=== PATIENT | male | born 1950 | race Caucasian/White ===

== ENCOUNTER → 2016-04-26 | Outpatient (CLI) | payer MEDICARE, BC ==
[2015-03-02 03:00] VITALS: BP 150/68
--- NOTE | 2016-04-26 13:06 | KCIC ---
PROCEDURE Abdomen ultrasound HISTORY Severe right upper quadrant pain, nausea and vomiting COMPARISON None FINDINGS Multiple sonographic images of the abdomen are submitted. Pancreas is not well visualized due to bowel gas. Inferior vena cava is also not well seen due to bowel gas. There is coarsening of the echotexture of liver, no focal hepatic mass demonstrated. There is demonstrable color flow in the main portal vein. Right lobe of the liver measured 16.3 centimeters longitudinal. There is a large echogenic shadowing focus in the gallbladder lumen on the order of 2.2 centimeters in size, a few other smaller gallstones present. Gallbladder wall thickness is slightly prominent 0.4 cm. There is no pericholecystic fluid. Technologist reports a positive sonographic Potter's sign. Common bile duct is dilated up to 0.8 centimeters. Right kidney measured 10.3 x 3.9 x 5 centimeters, no hydronephrosis. IMPRESSION 1. There is cholelithiasis, largest 2.2 cm. There is nonspecific mild gallbladder wall thickening and technologist reports a positive sonographic Potter's sign which could be seen with cholecystitis although although no pericholecystic fluid. Common bile duct is dilated up to 0.8 centimeters. 2. There is hepatic steatosis. Electronically signed by: Corey Mack MD (Apr 26, 2016 13:04:05)
== END | disposition home or self-care (01) ==
LOC: KCIC US 12:08
PROVIDERS: ATTEND Nurse Practitioner Family
DX: K80.20 Calculus of gallbladder without cholecystitis without obstruction (principal); K76.0 Fatty (change of) liver, not elsewhere classified
CPT/HCPCS: 76705

== ENCOUNTER 2016-05-17 05:44 | Observation (INO) | payer BC, MEDICARE ==
[~2016-05-17] VITALS: Ht 177.8 cm; Wt 81.6 kg
[2016-05-17] VITALS (11 sets, daily range): BP systolic 114–147; BP diastolic 44–67
[2016-05-17] MEDS ORDERED: CEFAZOLIN 2GM PREMIX 50 ML IV PRN (06:00)
[2016-05-17] MEDS ORDERED: CITA40TA5 PO (06:05)
[2016-05-17] MEDS ORDERED: OMEP40CA5 PO (06:05)
[2016-05-17] MEDS ORDERED: CHOL100013 PO (06:06)
[2016-05-17] MEDS ORDERED: LIDOCAINE 1% 1 ML SYRINGE. ID PRN (07:00)
[2016-05-17] MEDS ORDERED: MORPHINE SULFATE 2 MG/ML DISP.SYRIN. IV PRN (07:00)
[2016-05-17] MEDS ORDERED: IV RINGERS,LACTATED 1000ML 1,000 ML IV SCH (07:00)
[2016-05-17] MEDS ORDERED: ONDANSETRON PF 4 MG/2 ML VIAL. IV PRN ×2 (07:00→09:00)
[2016-05-17] MEDS ORDERED: PROCHLORPERAZINE 10 MG/2 ML VIAL. IV PRN (07:00)
[2016-05-17] MEDS ORDERED: FENTANYL PF 100 MCG/2 ML VIAL. IV PRN (07:00)
[2016-05-17] MEDS ORDERED: BUPIVACAINE-EPI 0.5%-1:200000 50 ML VIAL. ONE (07:09)
[2016-05-17] MEDS ORDERED: SURGICEL HEMOSTAT 4X8 EACH. ONE (07:09)
[2016-05-17] MEDS ORDERED: IOHEXOL 300 MG/ML 50 ML VIAL. ONE (07:09)
[2016-05-17] MEDS ORDERED: PROPOFOL 20 ML IV ONE (07:16)
[2016-05-17] MEDS ORDERED: LIDOCAINE 2% 100 MG/5 ML SYRINGE. ONE (07:16)
[2016-05-17] MEDS ORDERED: FENTANYL PF 100 MCG/2 ML VIAL. ONE ×2 (07:16→08:02)
[2016-05-17] MEDS ORDERED: ONDANSETRON PF 4 MG/2 ML VIAL. ONE (07:16)
[2016-05-17] MEDS ORDERED: DEXAMETHASONE SOD PHOS 20 MG/5 ML VIAL. ONE ×2 (07:16→07:43)
[2016-05-17] MEDS ORDERED: SUCCINYLCHOLINE 200 MG/10 ML VIAL. ONE (07:16)
[2016-05-17] MEDS ORDERED: ROCURONIUM 50 MG/5 ML VIAL. ONE (07:17)
[2016-05-17] MEDS ORDERED: DIPHENHYDRAMINE 50 MG/ML VIAL. ONE (07:43)
[2016-05-17] MEDS ORDERED: FAMOTIDINE 20 MG/2 ML VIAL ONE (07:43)
[2016-05-17] MEDS ORDERED: ESMOLOL 100 MG/10 ML VIAL. IV ONE (08:02)
[2016-05-17] MEDS ORDERED: SEVOFLURANE 61 TO 120 MINUTES. IH ONE (08:13)
[2016-05-17] MEDS ORDERED: GLYCOPYRROLATE 1 MG/5 ML VIAL. ONE (08:26)
[2016-05-17] MEDS ORDERED: NEOSTIGMINE METHYLSULFATE 5 MG/5 ML SYRINGE. ONE (08:26)
--- NOTE | 2016-05-17 08:27 | RAD ---
Intraoperative cholangiogram, 05/17/2016: History: Cholecystectomy 2 spot films from surgery are presented for review. Contrast has been injected into the cystic duct remnant. 12 seconds of fluoroscopy time was utilized. The bile ducts are not dilated. There is good flow of contrast into the duodenum at the ampulla. No filling defect is seen in the common duct to suggest a retained calculus. The incompletely opacified intrahepatic ducts are unremarkable. IMPRESSION: No significant abnormality is detected.
--- NOTE | 2016-05-17 08:57 | PDOC4 ---
Operative Note Operative Note Operative Note: Preoperative Diagnosis: Calculus cholecystitis Postoperative Diagnosis: Same Procedure: Laparoscopic cholecystectomy with intraoperative cholangiogram Surgeons: Tomás Anesthesia: GenInes Estimated Blood Loss: 30 mL Specimen: Gallbladder to pathology Drains: None Complications: None Indications: The patient is a 66-year-old male who is been experiencing recurrent upper abdominal pain consistent with biliary colic. His evaluation included a sonogram which showed gallstones and concern for cholecystitis. Surgical treatment was offered by means of a laparoscopic cholecystectomy. The risks of surgery were discussed which include bleeding, infection, bile duct injury, bile leak, pain, the potential for additional surgeries or procedures. The patient understands and would like to proceed. Description: The patient was taken to the operating room and laid supine on the operating table. General anesthesia was performed. The abdomen was prepped with ChloraPrep and draped in a standard surgical fashion. A small infraumbilical incision was made with a scalpel. The Veress needle was then inserted and a pneumoperitoneum was then created. A 5 mm trocar was then inserted and the laparoscope was introduced. In the upper midabdomen a 12 mm trocar was inserted and in the right upper quadrant two 5 mm trochars were inserted. The gallbladder initially could not be visualized and there was significant adherence of the omentum to the gallbladder and liver. The omentum had to be dissected away and we were gradually able to visualize the anterior wall of the gallbladder. The overall appearance seemed consistent with marked chronic cholecystitis. I continued to mobilize the wall of the gallbladder from the omentum and freed up the remaining chronic-appearing adhesions. The gallbladder was then retracted cephalad. The cystic duct was dissected free from surrounding tissues. One clip was placed on the duct near the gallbladder junction. An opening was made in the duct and a cholangiocatheter placed within and secured with a clip. Using contrast dye and fluoroscopy an intraoperative cholangiogram was performed that appeared unremarkable. The clip and catheter were then withdrawn. Three clips were placed on the cystic duct and it was divided. The cystic artery was then identified, dissected free , doubly clipped and divided as well. The gallbladder was then mobilized away from the liver with cautery. The gallbladder was then placed in an endoscopic bag and extracted at the superior trocar site. The fascia there was closed with an 0 Vicryl suture. All blood and irrigation fluid was suctioned and hemostasis was good. The remaining ports were removed and the pneumoperitoneum was relieved. The skin incisions were injected with half percent Marcaine with epinephrine, and all were closed using 4-0 Monocryl suture. Steri-Strips and dressings were then applied. The patient tolerated the procedure well and was sent to the recovery room in stable condition. At the end of the case all counts were correct. LILLIAN HOLGUIN MD May 17, 2016 08:56
[2016-05-17] MEDS ORDERED: OXYCODONE/APAP 5/325 TABLET. PO PRN (09:00)
[2016-05-17] MEDS ORDERED: HYDROMORPHONE 2 MG/ML VIAL. IV PRN ×2 (09:00→10:00)
[2016-05-17] MEDS ORDERED: DEXTROSE 50% 25 GM / 50ML DISP.SYRIN. IV PRN (09:00)
[2016-05-17] MEDS ORDERED: 0.9 % SODIUM CHLORIDE 10 ML DISP.SYRIN. IV PRN (09:00)
[2016-05-17] MEDS: FENTANYL PF 100 MCG/2 ML VIAL. IV PRN ×2 (09:10→09:19)
[2016-05-17] MEDS: HYDROMORPHONE 2 MG/ML VIAL. IV PRN ×2 (09:25→09:35)
[2016-05-17] MEDS ORDERED: POTASSIUM CL 20MEQ D5-0.45NACL 1,000 ML IV SCH (10:00)
[2016-05-17] MEDS: PANTOPRAZOLE 40 MG TABLET.DR. PO SCH (10:00)
[2016-05-17] MEDS: KETOROLAC 15 MG/ML VIAL. IV PRN ×2 (10:39→18:17)
[2016-05-17] MEDS: CITALOPRAM 20 MG TABLET. PO SCH (10:39)
[2016-05-17] MEDS ORDERED: IV DEXTROSE 5 %-0.45 % NACL 1,000 ML IV SCH (11:30)
[2016-05-17] MEDS: OXYCODONE/APAP 5/325 TABLET. PO PRN (18:18)
[2016-05-18 03:01] VITALS: BP 107/53
[2016-05-18] MEDS: OXYCODONE/APAP 5/325 TABLET. PO PRN ×2 (03:47→08:21)
[2016-05-18 07:00] VITALS: BP 104/58
[2016-05-18] MEDS: PANTOPRAZOLE 40 MG TABLET.DR. PO SCH (08:20)
[2016-05-18] MEDS: KETOROLAC 15 MG/ML VIAL. IV PRN (08:20)
[2016-05-18] MEDS: CITALOPRAM 20 MG TABLET. PO SCH (08:28)
--- NOTE | 2016-05-18 08:54 | PDOC ---
PROGRESS NOTES Subjective Subjective Doing well, no complaints Objective Objective Vital Signs Date Time Temp Pulse Resp B/P Pulse Ox O2 Delivery O2 Flow Rate FiO2 05/18/16 08:21 Nasal Cannula 05/18/16 07:00 97.7 64 18 104/58 90 97.7 05/17/16 14:55 2.0 Intake and Output 05/18/16 06:59 Intake Total 1913 ml Output Total 1100 ml Balance 813 ml Intake Oral 0 ml IV Total 1913 ml Output Urine Total 1100 ml # Voids 4 Physical Exam Abdomen: Soft, No tenderness General: Alert, Oriented X3 Assessment Assessment Problems Medical Problems: (1) Chronic calculous cholecystitis Status: Acute Plan Plan of Care Discharge Comment Review of Relevant I have reviewed the following items vero (where applicable) has been applied. Medications Current Medications Ondansetron HCl (Zofran) 0.4 mg PRN Q6HRS PRN IV NAUSEA/VOMITING; Start at 07:00; Stop 05/17/16 at 15:03; Status DC Fentanyl Citrate (Fentanyl 2ml Vial) 25 mcg PRN Q5MIN PRN IV MILD PAIN; Start 05/17/16 at 07:00; Stop 05/17/16 at 11:16; Status DC Fentanyl Citrate (Fentanyl 2ml Vial) 50 mcg PRN Q5MIN PRN IV MODERATE PAIN Last administered on 05/17/16 09:19; Start 05/17/16 at 07:00; Stop 05/17/16 at 11: 16; Status DC Morphine Sulfate 1 mg 1 mg PRN Q10MIN PRN IV SEVERE PAIN; Start 05/17/16 at 07: 00; Stop 05/17/16 at 15:03; Status DC Lactated Ringer's (Iv Lactated Ringers) 1,000 ml @ 0 mls/hr Q0M IV Last administered on 05/17/16 06:43; Start 05/17/16 at 07:00; Stop 05/17/16 at 11:16; Status DC Lidocaine HCl 2 ml PRN 1X PRN ID PRIOR TO IV START; Start 05/17/16 at 07:00; Stop 05/17/16 at 11:16; Status DC Hydromorphone HCl (Dilaudid) 0.5 mg PRN Q10MIN PRN IV SEV PAIN, Second choice Last administered on 05/17/16 09:35; Start 05/17/16 at 07:00; Stop 05/17/16 at 11: 16; Status DC Prochlorperazine Edisylate 5 mg 5 mg PACU PRN PRN IV NAUSEA, MRX1 Last administered on 05/17/16 09:10; Start 05/17/16 at 07:00; Stop 05/17/16 at 11:18; Status DC Cefazolin Sodium/ Dextrose (Ancef 2gm Premix) 50 ml @ 100 mls/hr 1X PREOP PRN IV PRIOR TO PROCEDURE Last administered on 05/17/16 07:38; Start 05/17/16 at 06: 00; Stop 05/17/16 at 18:00; Status DC Cellulose 1 each STK-MED ONCE .ROUTE ; Start 05/17/16 at 07:09; Stop 05/17/16 at 07:10; Status DC Iohexol (Omnipaque 300 Mg/ml) 50 ml STK-MED ONCE .ROUTE Last administered on 07:53; Start 05/17/16 at 07:09; Stop 05/17/16 at 07:10; Status DC Bupivacaine HCl/ Epinephrine Bitart (Marcaine-Epi 0.5%-[id number]) 50 ml STK-MED ONCE .ROUTE Last administered on 05/17/16 07:53; Start 05/17/16 at 07:09; Stop 05/17/16 at 11:16; Status DC Dexamethasone Sodium Phosphate (Decadron) 20 mg STK-MED ONCE .ROUTE ; Start 05/17 at 07:16; Stop 05/17/16 at 11:16; Status DC Ondansetron HCl 4 mg 4 mg STK-MED ONCE .ROUTE ; Start 05/17/16 at 07:16; Stop 05/17/16 at 07:17; Status DC Propofol (Diprivan) 20 ml @ As Directed STK-MED ONCE IV ; Start 05/17/16 at 07:16 ; Stop 05/17/16 at 11:16; Status DC Lidocaine HCl (Lidocaine HCl 2% Abboject) 100 mg STK-MED ONCE .ROUTE ; Start 05/17/16 at 07:16; Stop 05/17/16 at 07:17; Status DC Fentanyl Citrate (Fentanyl 2ml Vial) 100 mcg STK-MED ONCE .ROUTE ; Start at 07:16; Stop 05/17/16 at 11:16; Status DC Succinylcholine Chloride (Anectine) 200 mg STK-MED ONCE .ROUTE ; Start 05/17/16 at 07:16; Stop 05/17/16 at 07:17; Status DC Rocuronium [place] (Zemuron) 50 mg STK-MED ONCE .ROUTE ; Start 05/17/16 at 07:17 ; Stop 05/17/16 at 07:18; Status DC Dexamethasone Sodium Phosphate (Decadron) 20 mg STK-MED ONCE .ROUTE ; Start 05/17 at 07:43; Stop 05/17/16 at 11:16; Status DC Famotidine (Pepcid) 20 mg STK-MED ONCE .ROUTE ; Start 05/17/16 at 07:43; Stop 05/17/16 at 11:16; Status DC Diphenhydramine HCl (Benadryl) 50 mg STK-MED ONCE .ROUTE ; Start 05/17/16 at 07: 43; Stop 05/17/16 at 11:16; Status DC Fentanyl Citrate (Fentanyl 2ml Vial) 100 mcg STK-MED ONCE .ROUTE ; Start at 08:02; Stop 05/17/16 at 11:16; Status DC Esmolol HCl (Brevibloc) 100 mg STK-MED ONCE IV ; Start 05/17/16 at 08:02; Stop at 11:16; Status DC Sevoflurane (Ultane) 60 ml STK-MED ONCE IH ; Start 05/17/16 at 08:13; Stop at 08:14; Status DC Glycopyrrolate (Robinul) 1 mg STK-MED ONCE .ROUTE ; Start 05/17/16 at 08:26; Stop 05/17/16 at 11:16; Status DC Neostigmine Methylsulfate 5 mg STK-MED ONCE .ROUTE ; Start 05/17/16 at 08:26; Stop 05/17/16 at 08:27; Status DC Sodium Chloride 3 ml 3 ml QSHIFT PRN IV AFTER MEDS AND BLOOD DRAWS; Start at 09:00 Potassium Chloride/Dextrose/ Sod Cl (KCl 20 Meq In D5W-1/2 NS) 1,000 ml @ 80 mls/hr [id number] IV ; Start 05/17/16 at 10:00; Stop 05/17/16 at 11:09; Status DC Dextrose (Dextrose 50%-Water Syringe) 12.5 gm PRN Q15MIN PRN IV SEE COMMENTS; Start 05/17/16 at 09:00 Oxycodone/ Acetaminophen (Percocet 5/325) 1 tab PRN Q4HRS PRN PO MILD PAIN, 1ST CHOICE Last administered on 05/17/16 14:55; Start 05/17/16 at 09:00 Oxycodone/ Acetaminophen (Percocet 5/325) 2 tab PRN Q4HRS PRN PO MODERATE PAIN , SEVERE PAIN Last administered on 05/18/16 08:21; Start 05/17/16 at 09:00 Ketorolac Tromethamine (Toradol) 15 mg PRN Q6HRS PRN IV PAIN Last administered on 05/18/16 08:20; Start 05/17/16 at 09:00; Stop 05/22/16 at 08:59 Hydromorphone HCl (Dilaudid) 0.2 mg PRN Q2HRS PRN IV PAIN; Start 05/17/16 at 09: 00 Ondansetron HCl (Zofran) 4 mg PRN Q6HRS PRN IV NAUESA, 1ST CHOICE; Start at 09:00 Citalopram Hydrobromide (Celexa) 40 mg DAILY PO Last administered on 05/18/16 08:28; Start 05/17/16 at 10:00 Pantoprazole Sodium (Protonix) 40 mg DAILYAC PO Last administered on 05/18/16 08:20; Start 05/17/16 at 10:00 Hydromorphone HCl 0.5 mg 0.5 mg PRN Q2HRS PRN IV PAIN Last administered on 10:36; Start 05/17/16 at 10:00 Dextrose/Sodium Chloride (Iv D5% - 1/2 NS) 1,000 ml @ 80 mls/hr [id number] IV Last administered on 05/17/16 11:46; Start 05/17/16 at 11:30; Stop 05/17/16 at 19: 38; Status DC Active Scripts Active Reported Vitamin D (Cholecalciferol (Vitamin D3)) 1,000 Unit Capsule 1 Cap PO DAILY Citalopram Hbr (Citalopram Hydrobromide) 40 Mg Tablet 1 Tab PO DAILY Omeprazole 40 Mg Capsule. 1 Cap PO DAILY Vitals/I & O Vital Sign - Last 24 Hours 05/17/16 05/17/16 05/17/16 05/17/16 09:09 09:10 09:19 09:24 Temp 97.6 97.6 97.6 97.6 Pulse 66 74 Resp 15 15 15 15 B/P 155/62 153/68 Pulse Ox 99 100 96 96 O2 Delivery Simple Mask Simple Mask Nasal Cannula Nasal Cannula O2 Flow Rate 10 10.0 2.0 2.0 05/17/16 05/17/16 05/17/16 05/17/16 09:25 09:35 09:39 09:54 Temp 97.6 98.2 97.6 98.2 Pulse 71 79 Resp 15 15 15 B/P 147/59 154/56 Pulse Ox 2 2 97 96 O2 Delivery Nasal Cannula Nasal Cannula Nasal Cannula Nasal Cannula O2 Flow Rate 2.0 2.0 2.0 05/17/16 05/17/16 05/17/16 05/17/16 10:00 10:12 10:30 10:36 Temp 97.7 97.7 Pulse 74 71 Resp 18 14 B/P 146/66 130/57 Pulse Ox 92 95 O2 Delivery Nasal Cannula Room Air Room Air O2 Flow Rate 2.0 05/17/16 05/17/16 05/17/16 05/17/16 10:45 11:00 11:06 11:15 Pulse 73 73 80 B/P 129/63 132/59 140/65 Pulse Ox 97 94 O2 Delivery Room Air Room Air Nasal Cannula Room Air 05/17/16 05/17/16 05/17/16 05/17/16 11:45 12:15 13:15 14:15 Pulse 75 71 82 68 B/P 135/62 129/61 124/67 132/64 Pulse Ox 95 96 94 96 O2 Delivery Room Air Room Air Room Air Room Air 05/17/16 05/17/16 05/17/16 05/17/16 14:55 15:55 18:18 19:05 Temp 98.7 98.7 Pulse 67 Resp 18 B/P 147/48 Pulse Ox 92 96 O2 Delivery Nasal Cannula Room Air Room Air Room Air O2 Flow Rate 2.0 05/17/16 05/17/16 05/18/16 05/18/16 20:00 23:06 03:01 03:47 Temp 98.0 97.9 98.0 97.9 Pulse 60 62 Resp 18 20 B/P 114/44 107/53 Pulse Ox 91 91 91 O2 Delivery Nasal Cannula Room Air Room Air Room Air 05/18/16 05/18/16 05/18/16 04:49 07:00 08:21 Temp 97.7 97.7 Pulse 64 Resp 18 B/P 104/58 Pulse Ox 91 90 O2 Delivery Room Air Room Air Nasal Cannula Intake and Output 05/17/16 05/17/16 05/18/16 14:59 22:59 06:59 Intake Total 1250 ml 663 ml 0 ml Output Total 400 ml 700 ml Balance 850 ml -37 ml 0 ml LILLIAN HOLGUIN MD May 18, 2016 08:54
--- NOTE | 2016-05-18 08:56 | DISCH ---
DISCHARGE INSTRUCTIONS Condition on Discharge Condition on Discharge: Stable Activity After Discharge Activity Instructions for Disc: No restrictions, Other, see below (no lifting over 20 lbs X 2 weeks) Driving Instructions after Dis: Other, see below (no driving if taking pain meds) Diet after Discharge Diet after Discharge: Regular Wound Incision Care Wound/Incision Care: Other, see below (may remove bandaids and shower) Follow-Up Follow up with: Dr Holguin in office, call for appointment [phone] LILLIAN HOLGUIN MD May 18, 2016 08:56
--- NOTE | 2016-05-18 08:58 | PDOC3 ---
Discharge Summary Visit Information Date of Admission: May 17, 2016 Date of Discharge: May 18, 2016 Admitting Diagnosis: Calculous cholecystitis Final Diagnosis Problems Medical Problems: (1) Chronic calculous cholecystitis Status: Acute Brief Hospital Course Allergies Allergies Coded Allergies Type Severity Reaction Last Updated Verified Iodinated Contrast Media - Oral and Allergy Intermediate 05/17/16 Yes Vital Signs Vital Signs Date Time Temp Pulse Resp B/P Pulse Ox O2 Delivery O2 Flow Rate FiO2 05/18/16 08:21 Nasal Cannula 05/18/16 07:00 97.7 64 18 104/58 90 97.7 05/17/16 14:55 2.0 Brief Hospital Course Mr. Mercer is a 66 old male who presented with calculous cholecystitis. He was taken to the OR on 05/17/16 and underwent a laparoscopic cholecystectomy. His postoperative recovery has been uneventful and he is stable for discharge on POD 1. Discharge Information Condition at Discharge: Stable Disposition/Orders: D/C to Home Scheduled Cholecalciferol (Vitamin D3) (Vitamin D) 1 CAP PO DAILY (Reported) Citalopram Hydrobromide (Citalopram Hbr) 1 TAB PO DAILY (Reported) Omeprazole (Omeprazole) 1 CAP PO DAILY (Reported) LILLIAN HOLGUIN MD May 18, 2016 08:58
--- NOTE | 2016-05-18 16:05 | PATHOLOGY ---
PATHOLOGY REPORT * * * * * * * * FINAL DIAGNOSIS: Gallbladder, laparoscopic cholecystectomy: - Cholelithiasis. - Cholesterolosis, focal. - Chronic cholecystitis. COMMENT: There is no evidence of malignancy. (JPM:; d/t: 05/18/16) REPORT ELECTRONICALLY SIGNED BY: Alvin Valenzuela M.D. DATE/TIME: 05/18/2016 16:04 * * * * * * * * GROSS PATHOLOGY: Received in formalin labeled "Cristhian Mercer - gallbladder and contents," is a 7.8 x 2.8 x 1.8 cm, disrupted gallbladder with pink-musa to green-musa, wrinkled, and slightly hemorrhagic serosal surfaces. Opening the gallbladder reveals light green to bright red mucosa and an average wall thickness of 0.1 cm. Calculi are present and no masses are noted grossly. Workers Compensation Claims Specialist sections from the body and fundus are submitted along with the proximal margin in cassette A1. (TTL; 05/17/2016) INITIAL CPT CODE(S): A; 36337 Professional services [place] [address] Technical services performed by [facility] at [address] [place] [address] [address], [place] [address]. SPECIMEN(S) RECEIVED: A.Gallbladder and contents CLINICAL HISTORY: Calculus, cholecystitis with obstruction PATIENT: CRISTHIAN MERCER /AGE: 1 1950 (Age: 66) PATIENT #: [id number] ALT CASE #: SPECIMEN COLLECTION DATE: 05/17/2016 SPECIMEN RECEIVED DATE: 05/17/2016 [facility] - [address] [place] [address] - PHONE: [phone] * * * END OF REPORT * * *
== END 2016-05-18 10:12 | disposition home or self-care (01) ==
LOC: SURG 05:44 → 4 NORTH 09:05
PROVIDERS: ADMIT Surgery; ATTEND Surgery
DX: K80.10 Calculus of gallbladder with chronic cholecystitis without obstruction (principal); K66.0 Peritoneal adhesions (postprocedural) (postinfection)
CPT/HCPCS: 47563; 74300; 96374; 96375; 96376; C1769; C1782; G0378; G0379; J0330; J0690; J0780; J1100; J1170; J1200; J1885; J2704; J2710; J3010; J3490; J7030; Q9967; S0028; 88304; J2405

== ENCOUNTER 2016-06-07 15:41 | Emergency (ER) | payer MEDICARE ==
[~2016-06-07] VITALS: Ht 177.8 cm; Wt 82.6 kg
[~2016-06-07 15:41] MED LIST: CHOL100013 PO; CITA40TA5 PO; OMEP40CA5 PO
[2016-06-07] MEDS ORDERED: IV NORMAL SALINE 1000ML BAG 1,000 ML IV ONE (18:45)
[2016-06-07 18:57] LABS: INR 1.2 (0.8-1.1); PROTHROMBIN TIME PATIENT 14.4 SEC (11.7-14.0)
--- NOTE | 2016-06-07 19:09 | PHYS DOC ---
Past Medical History Past Medical History: GERD Past Surgical History: Cholecystectomy, Tonsillectomy Additional Information: quit 17 years ago Alcohol Use: None Drug Use: None Adult General Chief Complaint Chief Complaint: GENERAL COMPLAINT HPI HPI This is a 66-year-old male who's had generalized weakness that has been chronic for the last 2-3 months. His partner at bedside states that he has had something "toxic" in his system for the last few months. He's been seen by his primary care doctor and recently prescribed Levaquin for a pneumonia. He has had 2 days left of his treatment with this. He denies any specific complaints other than weakness. He denies any recent weight loss beyond what he's been doing with diet for the last several months. He denies any night sweats. He denies any fever or chills. He denies any chest pain or SOB. The patient takes citalopram and omeprazole but no other medications. Review of Systems Review of Systems Constitutional: Denies fever or chills [] Eyes: Denies change in visual acuity, redness, or eye pain [] HENT: Denies nasal congestion or sore throat [] Respiratory: Denies cough or shortness of breath [] Cardiovascular: No additional information not addressed in HPI [] GI: Denies abdominal pain, nausea, vomiting, bloody stools or diarrhea [] : Denies dysuria or hematuria [] Musculoskeletal: Denies back pain or joint pain [] Integument: Denies rash or skin lesions [] Neurologic: Denies headache, focal weakness or sensory changes [] Endocrine: Denies polyuria or polydipsia [] Current Medications Current Medications Current Medications Medications (Trade) Dose Ordered Sig/Ganga Start Time Stop Time Status Last Admin Dose Admin Sodium Chloride (Iv Sodium Chloride 0.9% 1000ml Bag) 1,000 ml @ 1,000 mls/hr 1X ONCE 06/07/16 18:45 06/07/16 19:44 DC 06/07/16 18:45 1,000 MLS/HR Allergies Allergies Allergies Coded Allergies Type Severity Reaction Last Updated Verified Iodinated Contrast Media - Oral and Allergy Intermediate 05/17/16 Yes Physical Exam Physical Exam Constitutional: Well developed, well nourished, no acute distress, non-toxic appearance. [] HENT: Normocephalic, atraumatic, bilateral external ears normal, oropharynx moist, no oral exudates, nose normal. [] Eyes: PERRLA, EOMI, conjunctiva normal, no discharge. [] Neck: Normal range of motion, no tenderness, supple, no stridor. [] Cardiovascular:Heart rate regular rhythm, no murmur [] Lungs & Thorax: Bilateral breath sounds clear to auscultation [] Abdomen: Bowel sounds normal, soft, no tenderness, no masses, no pulsatile masses. [] Skin: Warm, dry, no erythema, no rash. [] Back: No tenderness, no CVA tenderness. [] Extremities: No tenderness, no cyanosis, no clubbing, ROM intact, no edema. [] Neurologic: Alert and oriented X 3, normal motor function, normal sensory function, no focal deficits noted. [] Psychologic: Affect normal, judgement normal, mood normal. [] Current Patient Data Vital Signs Vital Signs Date Time Temp Pulse Resp B/P Pulse Ox O2 Delivery O2 Flow Rate FiO2 06/07/16 19:22 52 11 147/63 98 Room Air 06/07/16 16:03 97.7 97.7 Lab Values Laboratory Tests Test 06/07/16 18:38 06/07/16 19:00 06/07/16 19:05 Prothrombin Time 14.4SEC (11.7-14.0) H Prothrombin Time INR 1.2 (0.8-1.1) H Urine Collection Type Unknown Urine Color Yellow Urine Clarity Clear Urine pH 6.0 Urine Specific [place] 1.015 Urine Protein Negativemg/dL (NEG-TRACE) Urine Glucose (UA) Negativemg/dL (NEG) Urine Ketones (Stick) Negativemg/dL (NEG) Urine Blood Negative (NEG) Urine Nitrite Negative (NEG) Urine Bilirubin Negative (NEG) Urine Urobilinogen Dipstick 0.2mg/dL (0.2 mg/dL) Urine Leukocyte Esterase Negative (NEG) Urine RBC 0/HPF (0-2) Urine WBC 0/HPF (0-4) Urine Squamous Epithelial Cells Occ/LPF Urine Bacteria 0/HPF (0-FEW) Urine Mucus Mod/LPF Urine Opiates Screen Pos (NEG) Urine Methadone Screen Neg (NEG) Urine Barbiturates Neg (NEG) Urine Phencyclidine Screen Neg (NEG) Urine Amphetamine/Methamphetamine Neg (NEG) Urine Benzodiazepines Screen Neg (NEG) Urine Cocaine Screen Neg (NEG) Urine Cannabinoids Screen Neg (NEG) Urine Ethyl Alcohol Neg (NEG) White Blood Count 6.5x10^3/uL (4.0-11.0) Red Blood Count 4.60x10^6/uL (4.30-5.70) Hemoglobin 13.7g/dL (13.0-17.5) Hematocrit 40.4% (39.0-53.0) Mean Corpuscular Volume 88fL (79-100) Mean Corpuscular Hemoglobin 30pg (25-35) Mean Corpuscular Hemoglobin Concent 34g/dL (31-37) Red Cell Distribution Width 12.7% (11.5-14.5) Platelet Count 201x10^3/uL (140-400) Neutrophils (%) (Auto) 48% (31-73) Lymphocytes (%) (Auto) 40% (24-48) Monocytes (%) (Auto) 11% (0-9) H Eosinophils (%) (Auto) 1% (0-3) Basophils (%) (Auto) 1% (0-3) Neutrophils # (Auto) 3.1x10^3uL (1.8-7.7) Lymphocytes # (Auto) 2.6x10^3/uL (1.0-4.8) Monocytes # (Auto) 0.7x10^3/uL (0.0-1.1) Eosinophils # (Auto) 0.1x10^3/uL (0.0-0.7) Basophils # (Auto) 0.0x10^3/uL (0.0-0.2) Sodium Level 140mmol/L (136-145) Potassium Level 4.0mmol/L (3.5-5.1) Chloride Level 103mmol/L (98-107) Carbon Dioxide Level 28mmol/L (21-32) Anion Gap 9 (6-14) Blood Urea Nitrogen 17mg/dL (8-26) Creatinine 1.1mg/dL (0.7-1.3) Estimated GFR (Cockcroft-Gault) 67.2 BUN/Creatinine Ratio 15 (6-20) Glucose Level 86mg/dL (70-99) Calcium Level 8.4mg/dL (8.5-10.1) L Total Bilirubin 0.6mg/dL (0.2-1.0) Aspartate Amino Transferase (AST) 22U/L (15-37) Alanine Aminotransferase (ALT) 33U/L (16-63) Alkaline Phosphatase 47U/L (46-116) Troponin I Quantitative < 0.017ng/mL (0.000-0.055) Total Protein 6.6g/dL (6.4-8.2) Albumin 3.6g/dL (3.4-5.0) Albumin/Globulin Ratio 1.2 (1.0-1.7) Lipase 166U/L (73-393) Thyroid Stimulating Hormone (TSH) 1.377uIU/mL (0.358-3.74) Free Thyroxine 1.13ng/dL (0.76-1.46) Free Triiodothyronine (T3) pg/mL 2.88pg/mL (2.18-3.98) Laboratory Tests 06/07/16 19:05 Laboratory Tests 06/07/16 19:05 EKG EKG EKG as interpreted by me shows a sinus rhythm with a rate of 54 bpm. There are no obvious ischemic findings on this EKG. Radiology/Procedures Radiology/Procedures One view of the chest as interpreted by me did not reveal an acute cardiopulmonary process. Course & Med Decision Making Course & Med Decision Making Pertinent Labs and Imaging studies reviewed. (See chart for details) This 66-year-old male who's had chronic symptoms of fatigue and weakness will have full laboratory workup. His EKG and chest x-ray at this time are unremarkable. Thyroid studies will be obtained. His laboratory workup has been completely unremarkable. His chest x-ray did not reveal any abnormality. She was given an IV fluid bolus. He states he does feel mildly better. He states he will follow closely with his primary care doctor. I do not see any other specific tests I would order at this time. Patient is very agreeable with this plan and will follow closely with his primary care doctor for symptom resolution. Dragon Disclaimer Dragon Disclaimer This electronic medical record was generated, in whole or in part, using a voice recognition dictation system. Departure Departure Impression: Primary Impression: Weakness Disposition: HOME, SELF-CARE Admitting Physician: Other Condition: STABLE Referrals: STORM HAZEL APRN (PCP) Patient Instructions: Weakness, [id number] Additional Instructions: Please follow-up with your primary care doctor in the next several days for your ongoing weakness. Continue to stay well-hydrated and drink plenty of fluids and get plenty of rest. Return to ER if you develop any worsening of your weakness or develop any new symptoms such as chest pain, shortness of breath, fever or chills. LILLIAN PADILLA DO Jun 07, 2016 19:09
[2016-06-07 19:15] LABS: BASO % 1 % (0-3); EOS % 1 % (0-3); HEMATOCRIT 40.4 % (39.0-53.0); HEMOGLOBIN 13.7 g/dL (13.0-17.5); LYMPH # 2.6 x10^3/uL (1.0-4.8); LYMPH % 40 % (24-48); MEAN CORPUSCULAR HEMOGLOBIN 30 pg (25-35); MEAN CORPUSCULAR HGB CONC 34 g/dL (31-37); MEAN CORPUSCULAR VOLUME 88 fL (79-100); MONO % 11 % (0-9); NEUT % 48 % (31-73); PLATELET COUNT 201 x10^3/uL (140-400); RED CELL DISTRIBUTION WIDTH 12.7 % (11.5-14.5); WHITE BLOOD COUNT 6.5 x10^3/uL (4.0-11.0)
[2016-06-07 19:23] LABS: BILIRUBIN,URINE NEGATIVE (NEG); GLUCOSE,URINE NEGATIVE (NEG); NITRITE,URINE NEGATIVE (NEG); PROTEIN,URINE NEGATIVE (NEG-TRACE); UROBILINOGEN,URINE 0.2 mg/dL (0.2 mg/dL)
[2016-06-07 19:28] LABS: BACTERIA,URINE 0 /HPF (0-FEW); RBC,URINE 0 /HPF (0-2); SQUAMOUS EPITHELIAL CELL,UR OCC /LPF; WBC,URINE 0 /HPF (0-4)
[2016-06-07 19:29] LABS: BARBITURATES NEG (NEG); BENZODIAZEPINES NEG (NEG); CANNABINOIDS NEG (NEG); COCAINE NEG (NEG); METHADONE NEG (NEG); OPIATES POS (NEG); PHENCYCLIDINE NEG (NEG)
[2016-06-07 19:30] LABS: ETHANOL, URINE NEG (NEG)
[2016-06-07 19:37] LABS: CALCIUM 8.4 mg/dL (8.5-10.1); CREATININE 1.1 mg/dL (0.7-1.3); GFR 67.2
[2016-06-07 19:43] LABS: ALBUMIN 3.6 g/dL (3.4-5.0); ALBUMIN/GLOBULIN RATIO 1.2 (1.0-1.7); TOTAL BILIRUBIN 0.6 mg/dL (0.2-1.0); TOTAL PROTEIN 6.6 g/dL (6.4-8.2)
[2016-06-07 19:54] LABS: FREE T4 1.13 ng/dL (0.76-1.46)
[2016-06-07 20:48] VITALS: BP 143/62
--- NOTE | 2016-06-08 07:12 | EKG ---
[facility] [address] [place] [address] Test Date: 2016-06-07 Test Time: 18:29:15 Pat Name: CRISTHIAN CHADWICK Department: Room: Gender: M Crester: : 1950 Requested By: LILLIAN PADILLA Order Number: [id number] Reading MD: Rocky Cerrato Measurements Intervals [place] Rate: 54 P: MN: QRS: 13 QRSD: 66 T: 15 QT: 404 QTc: 385 Interpretive Statements SINUS RHYTHM Electronically Signed On 06-08-2016 15:57:20 CDT by Rocky Cerrato
--- NOTE | 2016-06-08 09:04 | RAD ---
Portable chest, 06/07/2016: History: Weakness and nausea The heart size and pulmonary vascularity are normal. No pulmonary infiltrates are seen. There is no evidence of pleural fluid. Mild spurring is present in the spine. IMPRESSION: No acute cardiopulmonary abnormality is detected.
== END 2016-06-07 20:48 | disposition home or self-care (01) ==
LOC: ER 15:41
DX: R53.1 Weakness (principal); K21.9 Gastro-esophageal reflux disease without esophagitis; Z87.891 Personal history of nicotine dependence; Z90.49 Acquired absence of other specified parts of digestive tract; Z91.041 Radiographic dye allergy status
CPT/HCPCS: 36415; 71010; 80053; 80305; 81001; 83690; 84436; 84439; 84443; 84481; 84484; 85027; 85610; 93005; 96360; 99285; J7030; G0481

== ENCOUNTER → 2019-02-20 | Outpatient (CLI) | payer MEDICARE ==
[~2019-02-20] MED LIST changes: +OMEP40CA45 PO; -OMEP40CA5 PO
--- NOTE | 2019-02-20 13:42 | KCIC ---
EXAM: Left foot, 3 views; left ankle, 3 views; left knee, 3 views. HISTORY: Pain. COMPARISON: None. FINDINGS: Left knee: 3 views left knee are obtained. There is no fracture, dislocation or subluxation. There is enthesopathy along the superior patella. There is no joint effusion. Left ankle and foot: 3 views of the left ankle and foot are obtained. There is no fracture, dislocation or subluxation. There is a tiny ossicle inferior to the lateral malleolus, likely due to the sequela of remote injury. There is a bone island within the distal fibular metaphysis. No osteochondral lesion is seen. There is enthesopathy at the Achilles tendon insertion. There is a small accessory navicular bone. IMPRESSION: No acute osseous finding. Electronically signed by: Fiona Pichardo MD (02/20/2019 1:39 PM) [place] [id number]
== END | disposition home or self-care (01) ==
LOC: KCIC 12:08
PROVIDERS: ATTEND Nurse Practitioner Family
DX: M77.52 Other enthesopathy of left foot and ankle (principal); M76.892 Other specified enthesopathies of left lower limb, excluding foot
CPT/HCPCS: 73562; 73610; 73630

== ENCOUNTER → 2020-01-02 | Outpatient (CLI) | payer MEDICARE ==
--- NOTE | 2020-01-02 15:04 | KCIC ---
EXAMINATION: Magnetic resonance imaging (MRI) of the lumbar spine without contrast 01/02/2020 2:00 PM HISTORY: Low back pain that radiates to the right and anteriorly TECHNIQUE: Multiplanar multi-weighted MRI of the lumbar spine was performed without intravenous contrast using the standard lumbar spine protocol. Contrast information: None administered. COMPARISON: None available. FINDINGS: The alignment of the lumbar spine is normal. Vertebral bodies demonstrate normal signal intensity on all sequences. There are no compression fractures. The conus medullaris terminates at the level of T12-L1. The distal spinal cord signal intensity is normal. There is disc desiccation at all levels of the lumbar spine, sparing L5-S1. There is annular fissure at L4-L5. There is a disc bulge at T11-T12 resulting in mild spinal canal stenosis. Central annular fissure is noted. Limited views of the abdomen and pelvis show no soft tissue abnormality. The aorta is normal. L2-L3: There is mild disc bulge asymmetric to the left. Mild facet arthropathy ligamentum flavum infolding. No neuroforaminal or significant spinal canal stenosis. L3-L4: There is a disc bulge asymmetric to the left. Mild to moderate facet arthropathy. Mild bilateral neural foraminal stenosis. Mild spinal canal stenosis. L4-L5: There is a disc bulge with central disc protrusion. Mild to moderate facet arthropathy. Moderate left and mild right neural foraminal stenosis. There is left lateral recess stenosis. Mild spinal canal stenosis. L5-S1: Disc is normal in configuration. Moderate facet arthropathy. No neuroforaminal or spinal canal stenosis. IMPRESSION: Mild degenerative changes of the lumbar spine as described in detail above. Electronically signed by: Lorrie Willis MD (01/02/2020 3:01 PM) [facility]
== END ==
LOC: KCIC MRI 13:52
PROVIDERS: ATTEND Nurse Practitioner Family
DX: M47.817 Spondylosis without myelopathy or radiculopathy, lumbosacral region (principal); M48.061 Spinal stenosis, lumbar region without neurogenic claudication
CPT/HCPCS: 72148

== ENCOUNTER → 2020-02-18 | Outpatient (CLI) | payer MEDICARE ==
--- NOTE | 2020-02-18 14:11 | KCIC ---
EXAM: Abdomen and pelvis CT without intravenous contrast. HISTORY: Constipation and right lower quadrant pain. TECHNIQUE: Computed tomographic images of the abdomen and pelvis were obtained without contrast. Mult iplanar reformatting was performed. *One or more of the following individualized dose reduction techniques were utilized for this examina tion: 1. Automated exposure control. 2. Adjustment of the mA and/or kV according to patient size. 3. Use of iterative reconstruction technique. COMPARISON: None. FINDINGS: Evaluation of the lower thorax demonstrates basilar atelectasis. There is no infiltrate or pleural effusion. The heart is normal in size. There is a tiny hiatal hernia. No hepatic lesion is se en. The gallbladder is surgically absent. There is a small proximal duodenal diverticulum. The pancre as, spleen and adrenal glands are unremarkable. There is no hydronephrosis or nephrolithiasis. There is no appendicitis. There is stool throughout the colon and within the rectal vault. There is f ecal material within the distal small bowel. There is no evidence of bowel obstruction. The aorta is normal in caliber. There is no lymphadenopathy. The urinary bladder is unremarkable. There is a prost ate calcification. There is no suspicious osseous lesion. There are few benign bone islands. IMPRESSION: 1. Moderate amount of stool throughout the colon and within the rectal vault, consistent with reporte d constipation. There is also fecal material within the distal ileum. No small bowel obstruction is s een. 2. Small hiatal hernia. Electronically signed by: Fiona Pichardo MD (02/18/2020 2:09 PM) [id number]
== END ==
LOC: KCIC CT 12:53
PROVIDERS: ATTEND Nurse Practitioner Family
DX: K44.9 Diaphragmatic hernia without obstruction or gangrene (principal); K57.10 Diverticulosis of small intestine without perforation or abscess without bleeding; J98.11 Atelectasis
CPT/HCPCS: 74176